=== PATIENT | female | born 2000 | race African-American/Black ===

== ENCOUNTER 2020-01-17 21:25 | Emergency (ER) | payer MEDICAID ==
[~2020-01-17] VITALS: Ht 167.6 cm; Wt 78.0 kg
[2020-01-17] MEDS ORDERED: IBUPROFEN 600MG TABLET PO STA (23:57)
[2020-01-18] MEDS ORDERED: BACITRACIN ZINC OINT UDPKT TOP ONE
[2020-01-18] MEDS ORDERED: LIDOCAINE 1%/EPI 1:100,000 10 ML VIAL IJ ONE
[2020-01-18 00:31] LABS: CLARITY URINE CLEAR (CLEAR); COLOR URINE YELLOW (YELLOW); KETONES URINE TRACE (NEGATIVE); LEUKOCYTE ESTERASE URINE 1+ (NEGATIVE); NITRITE URINE NEGATIVE (NEGATIVE); OCCULT BLOOD URINE NEGATIVE (NEGATIVE); PROTEIN URINE NEGATIVE (NEGATIVE); SPECIFIC GRAVITY URINE 1.023 (1.005-1.030)
[2020-01-18 01:18] VITALS: BP 133/94
[2020-01-18] MEDS ORDERED: LIDOCAINE HCL/EPINEPHRINE 1%-EPI 1:100,000 20 ML VIAL INFIL NR (03:30)
== END 2020-01-18 01:20 | disposition home or self-care (01) ==
LOC: ER 21:25
DX: L02.214 Cutaneous abscess of groin (principal); N39.0 Urinary tract infection, site not specified
CPT/HCPCS: 10060; 81003; 81025; 87077; 87086; 87186; 99284; Z7610; J3490

== ENCOUNTER 2020-01-19 14:30 | Emergency (ER) | payer MEDICAID ==
[~2020-01-19] VITALS: Ht 167.6 cm; Wt 77.0 kg
[2020-01-19 14:51] VITALS: BP 97/90
== END 2020-01-19 15:18 | disposition home or self-care (01) ==
LOC: ER 14:30
DX: Z48.00 Encounter for change or removal of nonsurgical wound dressing (principal)
CPT/HCPCS: 99281